=== PATIENT | male | born 1970 | race Caucasian/White ===

== ENCOUNTER 2022-12-30 15:20 | Emergency (ER) | payer BC, OTHER ==
[~2022-12-30] VITALS: Ht 182.9 cm; Wt 81.6 kg
[~2022-12-30 15:20] MED LIST: IBUP-785 PO
[2022-12-30 15:59] LABS: HEMATOCRIT 47.8 % (36.7-47.1); MEAN CORPUSCULAR VOLUME 84.5 fL (73.0-96.2); PLATELET COUNT (AUTO) 241 K/uL (152-348)
--- NOTE | 2022-12-30 16:10 | NUR ---
Pt arrived in the ED w/ c/o shortness of breath. Pt denies flu like symptoms. Denies headache, n/v, dizziness. Seen by Dr. Torres for MSE.
[2022-12-30 16:20] LABS: ALANINE AMINOTRANSFERASE 63 U/L (16-63); ALKALINE PHOSPHATASE 113 U/L (50-136); ASPARTATE AMINOTRANSFERASE 22 U/L (15-37); BILIRUBIN,DIRECT 0.1 mg/dL (0.0-0.2); BILIRUBIN,TOTAL 0.6 mg/dL (0.2-1.0); CARBON DIOXIDE 28 mmol/L (21-32); CHLORIDE 104 mmol/L (98-107); CREATININE 1.2 mg/dL (0.6-1.3); GLUCOSE 114 mg/dL (74-106); TOTAL PROTEIN, SERUM 8.1 g/dL (6.4-8.2); UREA NITROGEN, BLOOD 18 mg/dL (7-18)
[2022-12-30 18:29] VITALS: BP 132/78
--- NOTE | 2022-12-30 18:29 | NUR ---
Patient discharged to home in stable condition. Written and verbal after care instructions given. Patient verbalizes understanding of instructions. Stressed follow up or return to ER for worsening s/s.
== END 2022-12-30 18:30 | disposition home or self-care (01) ==
LOC: ER 15:20
DX: F41.9 Anxiety disorder, unspecified (principal); R00.2 Palpitations; Z20.822 Contact with and (suspected) exposure to COVID-19; Z87.891 Personal history of nicotine dependence; Z82.49 Family history of ischemic heart disease and other diseases of the circulatory system; Z91.041 Radiographic dye allergy status
CPT/HCPCS: 36415; 71045; 84484; 85025; 85730; 93005; A4663

== ENCOUNTER 2025-07-19 12:09 | Emergency (ER) | payer BC ==
[~2025-07-19] VITALS: Ht 188 cm; Wt 95.3 kg
[2025-07-19 12:11] VITALS: BP 150/89
[2025-07-19 13:46] VITALS: BP 148/86; O2SAT 98
== END 2025-07-19 13:47 | disposition home or self-care (01) ==
LOC: ER 12:09
DX: S90.111A Contusion of right great toe without damage to nail, initial encounter (principal); Z88.8 Allergy status to other drugs, medicaments and biological substances; W22.09XA Striking against other stationary object, initial encounter; Y93.11 Activity, swimming; Y92.89 Other specified places as the place of occurrence of the external cause; Y99.8 Other external cause status
CPT/HCPCS: 73660; A4606; A4663